=== PATIENT | male | born 1995 ===

== ENCOUNTER 2023-12-25 18:33 | Emergency (ER) | payer BC ==
[2023-12-25 18:41] VITALS: BP 143/80; PULSE 108; RESP 18; TEMP 98.6; BMI 26.6
[2023-12-25] MEDS ORDERED: ACETAMINOPHEN 325 MG TABLET (FP) ONE (20:50)
[2023-12-25] MEDS: ACETAMINOPHEN 325 MG TABLET (FP) PO ONE (20:52)
== END 2023-12-25 21:54 | disposition home or self-care (01) ==
LOC: JER 18:33
DX: S02.2XXA Fracture of nasal bones, initial encounter for closed fracture (principal); S80.211A Abrasion, right knee, initial encounter; Y04.8XXA Assault by other bodily force, initial encounter
CPT/HCPCS: 70450-TC; 70486-TC; 99284-25